=== PATIENT | female | born 1975 | race African-American/Black ===

== ENCOUNTER 2018-08-01 17:26 | Emergency (ER) | payer OTHER ==
[~2018-08-01] VITALS: Ht 162.6 cm; Wt 100.0 kg
[~2018-08-01 17:26] MED LIST: IBUP-2071 PO
[2018-08-01 18:26] LABS: BASOPHILS % (AUTO) 0.2 % (0.0-2.0); EOSINOPHILS % (AUTO) 1.9 % (1.0-6.0); HEMATOCRIT 27.7 % (36-46); HEMOGLOBIN 8.5 g/dL (12.0-16.0); LYMPHOCYTES # (AUTO) 2.5 K/uL (1.0-4.8); MEAN CORPUSCULAR HEMOGLOBIN 19.7 pg (26.0-34.0); MEAN CORPUSCULAR HGB CONC 30.6 G/dL (31.0-37.0); MEAN CORPUSCULAR VOLUME 65 fL (80-100); MONOCYTES # (AUTO) 0.5 K/uL (0.1-1.0); MONOCYTES % (AUTO) 5.9 % (2.0-9.0); NEUTROPHILS # (AUTO) 5.7 K/uL (1.8-7.7); PLATELET COUNT (AUTO) 369 K/uL (150-450); RED BLOOD CELL COUNT(AUTO) 4.29 MIL/uL (4.00-5.20); RED CELL DISTRIBUTION WIDTH 22.5 % (11.5-14.5)
[2018-08-01] MEDS ORDERED: KETOROLAC TROMETHAMINE 30 MG/ML VIAL IVP ONE (18:30)
[2018-08-01 18:38] LABS: PROTHROMBIN TIME 10.2 SEC (9.4-11.6)
[2018-08-01] MEDS ORDERED: HYDROmorphone 2 MG/ML SYRINGE IVP ONE (19:45)
[2018-08-01] MEDS ORDERED: ONDANSETRON HCL 4 MG/2 ML VIAL IVP ONE (19:45)
[2018-08-01] MEDS ORDERED: OxyCODONE HCL/ACETAMINOPHEN 5-325 MG TABLET PO ONE (22:45)
[2018-08-01 22:50] VITALS: BP 122/84
== END 2018-08-01 22:52 | disposition home or self-care (01) ==
LOC: EMS 17:36
DX: D25.9 Leiomyoma of uterus, unspecified (principal); R10.2 Pelvic and perineal pain; N92.0 Excessive and frequent menstruation with regular cycle; D64.9 Anemia, unspecified; F17.210 Nicotine dependence, cigarettes, uncomplicated
CPT/HCPCS: 84702; 85025; 85610; 85730; 96374; 96375; 99283; J1170; J1885; J2405